=== PATIENT | male | born 1950 | race Caucasian/White ===

== ENCOUNTER 2016-05-31 07:54 | Inpatient (IN) ==
[2016-05-31] MEDS ORDERED: 0.9 % Sodium Chloride 1,000 ML ONE (08:05)
--- NOTE | 2016-05-31 08:13 | Emergency Department Note ---
Disposition Clinical Impression: New onset seizure, Confusion, TIA (transient ischemic attack) Disposition: Admitted As Inpatient Condition: Good Time of Disposition: 10:32 Seizure HPI - General Chief Complaint: ED Seizure Stated Complaint: seizure like activity Time Seen by Provider: 05/31/16 08:04 Source: EMS Limitations: no limitations Nursing Notes Reviewed: Yes Vital Signs Reviewed: Yes - History of Present Illness HPI Narrative: Patient is a 66-year-old male who presents to [facility] ED with a chief complaint of possible seizure-like activity. states that they were sitting at the dining table this morning eating breakfast when all of a sudden the patient was acting strange. asked him what was wrong and he said he was having trouble speaking. States his head went over to the side and he seemed like he had a facial droop on the right. He then had his eyes rolled back and his arms were flexed and started shaking. She then went over to call a squad and saw that he fell backwards in the chair and hit the back of his head. thinks the seizure-like episode lasted for approximately a few minutes. She came back over and laid him on his side. He then had snoring respirations afterwards. When EMS arrived approximately 10-15 minutes later, he still had snoring respirations. He was awake and alert when he presented to the emergency department. Able to answer all questions but no memory of the event. Patient does seem somewhat confused about his medications as well as medical history. states he has a medical history of hypertension on metoprolol and has been on prednisone for joint pain after an upper respiratory infection over the last 2 weeks. 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 Denies: chest pain, cough, shortness of breath, syncope, weakness Pain Scale: 0 Treatments prior to arrival: none - Related Data Home Medications Medication Instructions Recorded Confirmed Albuterol Sulfate [Albuterol 2 puff IH Q4HR PRN 03/24/16 05/31/16 Inhaler] Amlodipine Besylate 2.5 mg PO BID 03/24/16 05/31/16 Aspirin Enteric Coated [Aspirin EC] 81 mg PO DAILY 03/24/16 05/31/16 Gabapentin [Neurontin] 100 - 300 mg PO HS 03/24/16 05/31/16 Glucosamn/Condroitn/C/Mn/[place] 1 tab PO DAILY 03/24/16 05/31/16 [Cvs Glucosamine Chondroitin Tb] Levothyroxine [Synthroid] 125 mcg PO DAILY 03/24/16 05/31/16 Metoprolol XL (24 HR) Succ [Toprol 12.5 mg PO DAILY 03/24/16 05/31/16 XL] Multivitamin [One Daily Essential] 1 tab PO DAILY 03/24/16 05/31/16 [place]-3/Dha/Epa/Fish Oil [Fish Oil 1,000 mg PO DAILY 03/24/16 05/31/16 1,000 mg Softgel] PredniSONE [Deltasone] 40 mg PO DAILY 05/31/16 05/31/16 Allergies Allergy/AdvReac Type Severity Reaction Status Date / Time lisinopril AdvReac Cough Verified 03/24/16 07:12 All systems ED: reviewed and negative except as stated. Past Medical History - Past Medical History Attestation: Yes The following information was validated with the patient. Source: patient Medical history: Reports: asthma, hypertension, migraine, thyroid disease Surgical history: Reports: thyroidectomy Psychiatric history: Reports: no psych history - Social History Smoking Status: Unknown if ever smoked Smokeless Tobacco Status: No Alcohol use: Reports: occasionally Drug use: Reports: none Physical Exam - General Limitations: no limitations General appearance: alert, in no apparent distress - Head Head exam: atraumatic, normocephalic, normal inspection - Eye Eye exam: Present: normal appearance, PERRL, EOMI - ENT ENT exam: normal exam, normal oropharynx, mucous membranes moist - Neck Neck exam: Present: normal inspection, full ROM, trachea midline - Chest Chest inspection: Present: normal inspection, symmetric chest wall rise - Respiratory Respiratory exam: Present: normal lung sounds bilaterally - Cardiovascular Cardiovascular exam: Present: normal rhythm, tachycardia - Abdominal Exam Abdominal exam: Present: soft, Non-Tender. Absent: tenderness, distention, guarding, rebound, rigidity - Extremities Exam Extremities exam: Present: normal inspection, full ROM. Absent: tenderness, pedal edema - Back Exam Back exam: Present: normal inspection, full ROM. Absent: tenderness - Neurological Exam Neurological exam: Present: alert, CN II-XII intact. Absent: motor sensory deficit - Expanded Neurological Exam Speech: Present: fluid speech Motor strength - LUE: 5/5 Motor strength - RUE: 5/5 Motor strength - LLE: 5/5 Motor strength - RLE: 5/5 Coma Scale Eye Opening: Spontaneous Coma Scale Motor Response: Obeys Commands Coma Scale Verbal Response: Confused Coma Scale Total: 14 - Psychiatric Psychiatric exam: Present: normal affect, normal mood - Skin Skin exam: Present: warm, dry, intact, normal color Course Course Narrative: Patient seen and examined. Apparent seizure-like activity with possible prodromal symptoms. Had almost strokelike appearance at first with difficulty with speech as well as possible facial droop. These symptoms are gone upon his presentation. No prior seizure history. Labs, CT head ordered. Will admit patient after his workup is complete. - Reevaluation(s) Reevaluation #1: Labwork unremarkable. CT head unremarkable. I spoke with neurologist Dr. Richard who states he will consult on the patient for seizure versus TIA workup. I also spoke with hospitalist Dr. Luong was accepted patient for admission. Time: 10:23 Vital Signs Temperature 98.2 F 05/31/16 07:55 Pulse Rate 115 05/31/16 07:55 Respiratory Rate 16 05/31/16 07:55 Blood Pressure 134/90 05/31/16 07:55 O2 Sat by Pulse Oximetry 93 05/31/16 07:55 Temperature 97.8 F 05/31/16 18:49 Pulse Rate 80 05/31/16 18:49 Respiratory Rate 16 05/31/16 18:49 Blood Pressure 133/85 05/31/16 18:49 O2 Sat by Pulse Oximetry 96 05/31/16 18:49 Oxygen Delivery Oxygen Delivery Room Air Seizure - Medical Records Medical records reviewed: Yes I reviewed the patient's medical records. - Lab Data Lab results reviewed: Yes I reviewed the patient's lab results. Result diagrams: 05/31/16 08:16 05/31/16 08:16 Lab Results 05/31/16 05/31/16 05/31/16 Range/Units 08:16 08:16 08:16 WBC 11.2 H (4.3-11.1) K/mcL RBC 5.07 (4.19-5.50) M/mcL Hgb 14.6 (12.9-16.9) g/dL Hct 45.1 (37.5-50.1) % MCV 89.0 (83.0-100.0) fL MCH 28.8 (28.0-33.3) pg MCHC 32.4 (31.6-35.5) g/dL RDW 12.5 (11.5-14.5) % Plt Count 335 (140-400) K/mcL MPV 8.6 L (9.4-12.4) fL Immature Gran % 1.5 (0-4) % Seg Neutrophils % 73.4 % Lymphocytes % 16.4 % Monocytes % 8.1 % Eosinophils % 0.2 % Basophils % 0.4 % Neutrophils # 8.2 (1.6-8.9) K/mcL Lymphocytes # 1.8 (0.6-4.6) K/mcL Monocytes # 0.9 (0.0-1.3) K/mcL Eosinophils # 0.0 (0.0-0.6) K/mcL Basophils # 0.1 (0.0-0.2) K/mcL Sodium 135 L (136-145) mEq/L Potassium 4.2 (3.5-4.5) mEq/L Chloride 103 (98-109) mEq/L Carbon Dioxide 17 L (19-29) mEq/L BUN 16 (8-26) mg/dL Creatinine 0.97 (0.72-1.25) mg/dL Est GFR ( Amer) > 60 (> 60) Est GFR (Non-Af Amer) > 60 (> 60) BUN/Creatinine Ratio 16 (6-26) Glucose 133 H (70-99) mg/dL Calculated Osmolality 283 (280-300) Calcium 9.2 (8.6-10.8) mg/dL Phosphorus 2.4 (2.3-4.7) mg/dL Magnesium 2.1 (1.6-2.6) mg/dL Total Bilirubin 0.3 (0.2-1.2) mg/dL AST 12 (5-34) Units/L ALT 14 (0-55) Units/L Alkaline Phosphatase 62 (38-126) Units/L Serum Total Protein 7.0 (6.0-8.3) g/dL Albumin 3.4 L (3.5-5.0) g/dL Globulin 3.6 H (2.4-3.5) g/dL Albumin/Globulin Ratio 0.9 L (1.1-2.2) TSH 10.621 H (0.350-4.840) mcIU/mL - Radiology Data Radiology results reviewed: Yes I reviewed the patient's radiology results. Head CT 05/31/16 08:06 IMPRESSION: No acute intracranial abnormality. D/ / Percy Skaggs MD / Percy Skaggs MD Interpreting Provider: Percy Skaggs MD - EKG Data EKG attestation: Yes I reviewed and interpreted this EKG. EKG results narrative: EKG done at 759 shows sinus tachycardia with a rate of [address] elevation or depression. Normal axis. Unchanged from prior EKG done 2016.
--- NOTE | 2016-05-31 08:19 | Emergency Department Note ---
START Narrative - START START: I examined this patient and my medical decision-making was reviewed with the SITE OPERATIONS MANAGER/PA/Advanced Practice Nurse/Resident Physician. I agree with the documented findings, disposition and treatment plan as described except to the extent set forth below. 66-year-old male brought in by EMS after syncopal versus seizure episode. states that they were sitting at table eating breakfast when he suddenly had drooping of the right side of the face and had difficulty with speech. Patient then unresponsive and had convulsive movements. described as "seizure-like ". No history of seizure disorder. Patient has not syncopized before. No history of cardiac disease. Patient is treated for hypertension, hypothyroidism. He states the seizure lasted for about 3-5 minutes before improving. EMS states the patient was confused and had snoring respirations upon their arrival and upon arrival to the emergency department the patient is awake, alert, answering questions but has mild confusions regarding his case and presentation as well as his past medical history. We will obtain a CT of the head to rule out mass or intracranial hemorrhage as well as broad screening exam to evaluate for electrolyte abnormalities, cardiac disease. Patient will likely be admitted to the hospital for continuation of care.
[2016-05-31 08:23] LABS: Basophils # 0.1 K/mcL (0.0-0.2); Basophils % 0.4 %; Eosinophils % 0.2 %; Hematocrit 45.1 % (37.5-50.1); Hemoglobin 14.6 g/dL (12.9-16.9); Immature Granulocytes % 1.5 % (0-4); Lymphocytes # 1.8 K/mcL (0.6-4.6); Lymphocytes % 16.4 %; Mean Corpuscular HGB Conc 32.4 g/dL (31.6-35.5); Mean Corpuscular Hemoglobin 28.8 pg (28.0-33.3); Mean Platelet Volume 8.6 fL (9.4-12.4); Monocytes # 0.9 K/mcL (0.0-1.3); Monocytes % 8.1 %; Neutrophils # 8.2 K/mcL (1.6-8.9); Platelet Count 335 K/mcL (140-400); Red Blood Count 5.07 M/mcL (4.19-5.50); Red Cell Distribution Width 12.5 % (11.5-14.5); Segmented Neutrophils % 73.4 %
[2016-05-31 08:39] LABS: Alanine Aminotransferase 14 Units/L (0-55); Albumin 3.4 g/dL (3.5-5.0); Albumin/Globulin Ratio 0.9 (1.1-2.2); Alkaline Phosphatase 62 Units/L (38-126); Aspartate Amino Transferase 12 Units/L (5-34); BUN/Creatinine Ratio 16 (6-26); Bilirubin,Total 0.3 mg/dL (0.2-1.2); Blood Urea Nitrogen 16 mg/dL (8-26); Calcium 9.2 mg/dL (8.6-10.8); Carbon Dioxide 17 mEq/L (19-29); Chloride 103 mEq/L (98-109); Globulin 3.6 g/dL (2.4-3.5); Glucose 133 mg/dL (70-99); Magnesium 2.1 mg/dL (1.6-2.6); Osmolality,Calculated 283 (280-300); Phosphorous 2.4 mg/dL (2.3-4.7); Potassium 4.2 mEq/L (3.5-4.5); Sodium 135 mEq/L (136-145); eGFR For African Americans > 60 (> 60); eGFR For Non-African Americans > 60 (> 60)
[2016-05-31] MEDS ORDERED: Acetaminophen 325 MG TABLET PO ONE (09:37)
[2016-05-31] MEDS ORDERED: Ondansetron 4 MG/2 ML VIAL IVP PRN (10:11)
[2016-05-31] MEDS ORDERED: Acetaminophen 325 MG TABLET PO PRN (10:11)
[2016-05-31] MEDS ORDERED: Naloxone 0.4 MG/ML INJ IVP PRN (10:11)
[2016-05-31] MEDS ORDERED: MOM Conc 10 ML UD.LIQ PO PRN (10:11)
[2016-05-31] MEDS ORDERED: Mag Hydrox/Al Hydrox/Simeth 30 ML UDC PO PRN (10:11)
[2016-05-31] MEDS ORDERED: *HR* LORazepam 2 MG/ML VIAL IVP PRN (11:27)
[2016-05-31] MEDS: predniSONE 20 MG TABLET PO SCH (11:35)
[2016-05-31] MEDS: amLODIPine 5 MG TABLET PO SCH ×2 (11:35→21:00)
[2016-05-31] MEDS: Metoprolol XL (24 HR) Succ 25 MG TAB.ER.24H PO SCH (11:56)
--- NOTE | 2016-05-31 12:19 | Internal Med History&Physical ---
Date of Encounter: 05/31/16 Time of Encounter: 11:10 Assessment and Plan (1) Grand mal seizure Current visit: Yes Status: Acute Pt has no prior history of seizures. Denies precipitating event. Recently on steroids for myalgia/arthralgias Consult neuro: done in ED EEG ordered. Seizure precautions. PRN Ativan. ? if component of structural disease - MRI/MRA ordered. Denies alcohol use - Urine drug screen pending. (2) TIA (transient ischemic attack) Current visit: Yes Status: Suspected Asymptomatic at this time. Neuro consulted. MRI/MRA ordered Echo ordered On ASA Qualifiers: Transient cerebral ischemia type: unspecified Qualified Code(s): G45.9 - Transient cerebral ischemic attack, unspecified (3) Hypertension Current visit: Yes Status: Acute Pt with markedly elevated blood pressure at this time. Meds given in ED and PRN ordered. Complains of flushing as well - may need further work up for secondary causes if BP does not control. Qualifiers: Hypertension type: essential hypertension Qualified Code(s): I10 - Essential (primary) hypertension (4) Hepatomegaly Current visit: Yes Status: Suspected Consider further evaluation with ultrasound if warranted. LFTs normal at this time. (5) Hypothyroidism associated with surgical procedure Current visit: Yes Status: Acute Hx of goiter s/p unilateral thyroidectomy. Continue supplementation. Check TSH if not done (especially with hx of flushing). Internal Medicine - H&P: HPI Chief complaint: Witnessed seizure Admitted From: Emergency Dept Plans for Post Hospital Care: Home History of present illness: Mr. Solomon is a 66 year old male with hx of HTN brought to ED by EMS after witnessed seizure episode. 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 stated they were sitting at table when she noticed he seemed to be staring and unable to answer her. Subsequently she did notice a slight R facial weakness and then he became unresponsive with tonic clonic movements. She managed his airway and called 911. Upon squad arrival he was unresponsive with snoring respirations. He began to awaken in the squad but could only remember his name and was somnolent. Now he is fully awake but does not remember event. He also appears to have some retrograde amnesia of the time prior to the event. His only complaint is discomfort on the back of his head where it was hit. He denies prior history of seizure disorder. He has Neurontin at home but only took a couple doses a while ago and it was prescribed for restless leg syndrome. Denies any prior neurologic disease. No recent travel. His only recent history is a viral illness about 4 weeks ago which resolved in about 2 weeks. Over the last week he did develop some myalgias and arthralgias and was prescribed 5 days of Prednisone (today is day 4). Of note his relates an issue with his blood pressure - "white coat syndrome." His BPs are usually OK at home but he said recently they have been high. He also stated he has felt some warmth and flushing in his face recently. No fever or chills. No diarrhea or vomiting. No abdominal pain. Past Med Surg Social Fam HX - Past Medical History Attestation: Yes The following information was validated with the patient. Source: patient, obtained from family Medical history: arthritis, asthma, hypertension, migraine, thyroid disease Psychiatric history: no psych history - Past Surgical History Surgical History: thyroidectomy, other (L carpel tunnel 03/2016) - Social History Smoking Status: Never smoker Smokeless Tobacco Status: No Alcohol use: occasionally Drug use: none Current living situation: Home - Independent Activity Level: Independent ambulation Recent Out of Country Travel Within the Last 8 Weeks: No - Family History Father Living Status: Hx Family Cardiac Disorders: Yes (HTN, CAD) Hx Family Cancer: Yes (Lung) Mother Adopted: No Hx Family Cardiac Disorders: Yes (HTN) Brother Hx Family Cancer: Yes (Prostate) Internal Medicine - H&P: Meds Albuterol Sulfate [Albuterol Inhaler] 2 puff IH Q4HR PRN 03/24/16 [History] Amlodipine Besylate 2.5 mg PO BID 03/24/16 [History] Aspirin Enteric Coated [Aspirin EC] 81 mg PO DAILY 03/24/16 [History] Gabapentin [Neurontin] 100 - 300 mg PO HS 03/24/16 [History] Glucosamn/Condroitn/C/Mn/[place] [[facility]vs Glucosamine Chondroitin Tb] 1 tab PO DAILY 03/24/16 [History] Levothyroxine [Synthroid] 125 mcg PO DAILY 03/24/16 [History] Metoprolol XL (24 HR) Succ [Toprol XL] 12.5 mg PO DAILY 03/24/16 [History] Multivitamin [One Daily Essential] 1 tab PO DAILY 03/24/16 [History] [place]-3/Dha/Epa/Fish Oil [Fish Oil 1,000 mg Softgel] 1,000 mg PO DAILY 03/24/16 [History] PredniSONE [Deltasone] 40 mg PO DAILY 05/31/16 [History] Allergies lisinopril Adverse Reaction (Verified 03/24/16 07:12) Cough All Systems PM: A 10-system review of systems was performed and is negative for pertinent findings except as documented above in the HPI. - Constitutional Constitutional: malaise, no night sweats - EENT Eyes: no blurry vision, no change in vision, no pain Ears: no decreased hearing Nose, mouth and throat: no change in voice, no dysphagia, no hoarseness - Cardiovascular Cardiovascular ROS IM: no chest pain, no dyspnea, no irregular heart rhythm, no palpitations - Respiratory Respiratory: no cough, no dyspnea, no hemoptysis, no dyspnea on exertion - Gastrointestinal Gastrointestinal: no abdominal pain, no diarrhea, no hematemesis - Genitourinary Genitourinary ROS male: no dysuria, no flank pain - Musculoskeletal Musculoskeletal ROS IM: arthralgias, myalgias - Integumentary Integumentary IM: no erythema, no rash - Neurological Neurological ROS: confusion, convulsions, memory loss, numbness, restless legs, tingling, no dizziness - Psychiatric Psychiatric: no confusion, no depression - Endocrine Endocrine IM: flushing - Hematologic/Lymphatic Hematologic/Lymphatic: no lymphadenopathy - Allergic/Immunologic Allergic/Immunologic: no wheezing, no lip swelling - Constitutional Vitals: Temp Pulse Resp BP Pulse Ox 97.4 F L 80 18 169/112 98 05/31/16 11:01 05/31/16 11:01 05/31/16 11:01 05/31/16 11:01 05/31/16 11:01 General appearance: Present: A&O X 3, pleasant, answers questions appropriately - Head Head exam: Present: normocephalic Additional comments: No hematoma - Eye Eye exam: Present: EOMI, PERRL, conjuntiva pink. Absent: scleral icterus - ENT ENT exam: Present: mucous membranes dry - Neck Neck exam general surgery: Absent: lymphadenopathy, thyromegaly - Respiratory Respiratory exam: Present: CTAB. Absent: rhonchi, wheezes - Cardiovascular Cardiovascular exam: Present: RRR. Absent: +S3, +S4, systolic murmur, tachycardia - GI/Abdominal GI/Abdominal exam: Present: normal bowel sounds, soft. Absent: tenderness (? if there is hepatomegaly) - Extremities Exam Extremities exam: Present: full ROM, warm. Absent: pedal edema, tenderness - Neurological Exam Neurological exam: Present: alert, CN II-XII intact (? if slightly weaker on LUE ), oriented X3 - Psychiatric Psychiatric exam: Present: normal affect, normal mood - Skin Skin exam: Present: erythema (Cheeks flushed), warm. Absent: rash Internal Med - H&P Results - Labs CBC & Chem 7: 05/31/16 08:16 05/31/16 08:16
--- NOTE | 2016-05-31 12:57 | Neurology - Consult Note ---
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 Will need seizure work up including MRI of brain and Routine EEG. Due to age and comorbidities, will recommend starting him on antiepileptic therapy in the form of Keppra 500mg bid. History of Present Illness Chief complaint: seizure HPI: Mr. Solomon is a 66 year old male with PMH significant for HTN, hypothyroidism, who presented to ER with new onset of seizure activity. Patient interviewed in the presence of his . Patient was feeling this morning. Was eating and suddenly became looking bewildered and asked him the he did not respond. This was followed by him having automatism activity described as touch his both hand in the front and then turned his head to the right side and then started shaking and convulsions. Denies any warnings and no tongue biting kalyani but felt tongue was sore in the middle. No urinary incontinence. Has strong family history of epilepsy. Patient also has history of febrile convulsions. No similar spell in the past. Past Med Surg Social Fam HX - Past Medical History Medical history: arthritis, asthma, hypertension, migraine, thyroid disease Psychiatric history: no psych history - Past Surgical History Surgical History: thyroidectomy, other (L carpel tunnel 03/2016) - Social History Smoking Status: Never smoker Smokeless Tobacco Status: No Alcohol use: occasionally Drug use: none - Family History Father Living Status: Hx Family Cardiac Disorders: Yes (HTN, CAD) Hx Family Cancer: Yes (Lung) Mother Adopted: No Hx Family Cardiac Disorders: Yes (HTN) Brother Hx Family Cancer: Yes (Prostate) Medications and Allergies Albuterol Sulfate [Albuterol Inhaler] 2 puff IH Q4HR PRN 03/24/16 [History] Amlodipine Besylate 2.5 mg PO BID 03/24/16 [History] Aspirin Enteric Coated [Aspirin EC] 81 mg PO DAILY 03/24/16 [History] Gabapentin [Neurontin] 100 - 300 mg PO HS 03/24/16 [History] Glucosamn/Condroitn/C/Mn/[place] [Cvs Glucosamine Chondroitin Tb] 1 tab PO DAILY 03/24/16 [History] Levothyroxine [Synthroid] 125 mcg PO DAILY 03/24/16 [History] Metoprolol XL (24 HR) Succ [Toprol XL] 12.5 mg PO DAILY 03/24/16 [History] Multivitamin [One Daily Essential] 1 tab PO DAILY 03/24/16 [History] [place]-3/Dha/Epa/Fish Oil [Fish Oil 1,000 mg Softgel] 1,000 mg PO DAILY 03/24/16 [History] PredniSONE [Deltasone] 40 mg PO DAILY 05/31/16 [History] Allergies lisinopril Adverse Reaction (Verified 03/24/16 07:12) Cough All Systems: A 10-system review of systems was performed and is negative for pertinent findings except as documented above in the HPI. Physical Examination - Vital Signs Vital Signs: Initial Vital Signs Temp Pulse Resp BP Pulse Ox 98.2 F 115 16 134/90 93 05/31/16 07:55 05/31/16 07:55 05/31/16 07:55 05/31/16 07:55 05/31/16 07:55 - Constitutional General appearance: comfortable - Neurologic Sensorimotor examination: intact Detailed motor examination: grossly full strength in all extremities Motor examination - right side: 5/5: deltoids, biceps, triceps, wrist flexion, wrist extension, apartment maintenance, hip flexors, tibialis Anterior, quadriceps, toe extension (EHL), plantarflexion Motor examination - left side: 5/5: deltoids, biceps, triceps, wrist flexion, wrist extension, hip flexors, apartment maintenance, quadriceps, tibialis Anterior, toe extension (EHL), plantarflexion Detailed sensory examination: intact Posture: other (None) Reflex and gait examination: other Reflexes: Biceps: 2+, Triceps: 2+, Brachioradialis: 2+, Patella: 2+, Achilles: 2 + Mental Status Examination: awake, alert, oriented to person, oriented to place, oriented to time, follows commands appropriately, answers questions appropriately, no agnosia, no aphasia, no aproxia Cranial nerve examination: PERRL, EOMI, visual dean intact, corneal reflexes brisk symmetrically, sensory to face intact, mastication intact, no facial asymmetry is present, no dysarthria, hearing is intact symmetrically, soft palate elevates bilaterally upon phonation, gag reflex intact, flexes SCM and trapezius muscles symmetrically with full power, tongue protrudes midline, no atrophy or facial fasiculations present Results - Laboratory Findings CBC and BMP: 05/31/16 08:16 05/31/16 08:16 Abnormal lab findings: Abnormal lab results WBC 11.2 K/mcL (4.3-11.1) H 05/31/16 08:16 MPV 8.6 fL (9.4-12.4) L 05/31/16 08:16 Sodium 135 mEq/L (136-145) L 05/31/16 08:16 Carbon Dioxide 17 mEq/L (19-29) L 05/31/16 08:16 Glucose 133 mg/dL (70-99) H 05/31/16 08:16 Albumin 3.4 g/dL (3.5-5.0) L 05/31/16 08:16 Globulin 3.6 g/dL (2.4-3.5) H 05/31/16 08:16 Albumin/Globulin Ratio 0.9 (1.1-2.2) L 05/31/16 08:16 Consult Discharge Plan - Plan Referrals: Alannah Collins, [facility]OR[facility] [Primary Care Provider] -
[2016-05-31] MEDS: *HR* Heparin 5,000 UNIT/ML VIAL SQ SCH ×2 (13:20→21:04)
[2016-05-31 14:21] LABS: Bilirubin,Urine Negative (Negative); Blood,Urine Negative (Negative); Clarity,Urine Clear (Clear); Color,Urine Yellow (Yellow); Glucose,Urine (UA) Normal (Normal); Ketones,Urine Negative (Negative); Leukocyte Esterase,Urine Negative (Negative); Nitrite,Urine Negative (Negative); Protein,Urine Negative (Neg-Trace); Specific Gravity,Urine 1.015 (1.010-1.025); Urobilinogen,Urine Normal (Normal)
[2016-05-31 15:32] LABS: Amphetamine Screen,Urine Negative ng/mL (Cutoff=1000); Barbiturate Screen,Urine Negative ng/mL (Cutoff=200); Benzodiazepines Screen,Urine Negative ng/mL (Cutoff=200); Cannabinoid Screen,Urine Negative ng/mL (Cutoff = 50); Cocaine Screen,Urine Negative ng/mL (Cutoff= 300); Opiate Screen,Urine Negative ng/mL (Cutoff=300); Phencyclidine Screen,Urine Negative ng/mL (Cutoff=25)
[2016-05-31] MEDS ORDERED: Melatonin 3 MG TABLET PO SCH (21:30)
[2016-06-01 04:52] LABS: Basophils # 0.1 K/mcL (0.0-0.2); Basophils % 0.5 %; Eosinophils # 0.1 K/mcL (0.0-0.6); Eosinophils % 0.7 %; Hematocrit 41.2 % (37.5-50.1); Hemoglobin 13.7 g/dL (12.9-16.9); Lymphocytes # 2.5 K/mcL (0.6-4.6); Lymphocytes % 19.3 %; Mean Corpuscular HGB Conc 33.3 g/dL (31.6-35.5); Mean Corpuscular Hemoglobin 28.8 pg (28.0-33.3); Mean Corpuscular Volume 86.7 fL (83.0-100.0); Mean Platelet Volume 8.6 fL (9.4-12.4); Monocytes # 1.2 K/mcL (0.0-1.3); Monocytes % 9.1 %; Neutrophils # 8.8 K/mcL (1.6-8.9); Platelet Count 323 K/mcL (140-400); Red Blood Count 4.75 M/mcL (4.19-5.50); Red Cell Distribution Width 12.5 % (11.5-14.5); Segmented Neutrophils % 69.4 %
[2016-06-01 05:36] LABS: Alanine Aminotransferase 16 Units/L (0-55); Albumin 3.3 g/dL (3.5-5.0); Alkaline Phosphatase 57 Units/L (38-126); Aspartate Amino Transferase 17 Units/L (5-34); BUN/Creatinine Ratio 19 (6-26); Bilirubin,Total 0.3 mg/dL (0.2-1.2); Blood Urea Nitrogen 16 mg/dL (8-26); Calcium 8.7 mg/dL (8.6-10.8); Carbon Dioxide 24 mEq/L (19-29); Chloride 100 mEq/L (98-109); Globulin 3.2 g/dL (2.4-3.5); Glucose 101 mg/dL (70-99); Osmolality,Calculated 277 (280-300); Potassium 3.3 mEq/L (3.5-4.5); Sodium 133 mEq/L (136-145); Total Protein 6.5 g/dL (6.0-8.3); eGFR For African Americans > 60 (> 60); eGFR For Non-African Americans > 60 (> 60)
[2016-06-01] MEDS: *HR* Heparin 5,000 UNIT/ML VIAL SQ SCH (06:13)
--- NOTE | 2016-06-01 06:22 | Electrocardiograph Report ---
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
[2016-06-01] MEDS ORDERED: Aspirin Enteric Coated 81 MG Tablet PO SCH (09:00)
--- NOTE | 2016-06-01 09:08 | Neurology Progress Note ---
Date of Encounter: 06/01/16 Time of Encounter: 09:06 Assessment and Plan (1) New onset seizure Current Visit: Yes Status: Acute Will increase dose of Keppra to 750 mg BID PO as he had two episodes recently, last one being yesterday afternoon No events overnight and patient is currently at baseline mental status Awaiting EEG and MRI; initial head CT was negative for acute intracranial abnormalities Patient likely will benefit from better control of co-morbidities including hypothyroidism and hypertension Subjective Principal diagnosis: seizure Interval history: Pt seen and examined. He states he is doing well this morning and is at bedside and reports no seizure like activity since yesterday afternoon, and his mental status is appropriate and at baseline. He denies any chest pain, shortness of breath, nausea, vomiting, dysphagia, headaches. He claims to have issues with ambulating, denying any dizziness or falls, and is eager to go home. Objective - Constitutional Vitals: Temp Pulse Resp BP Pulse Ox 97.9 F 57 17 119/90 94 06/01/16 07:19 06/01/16 07:19 06/01/16 07:19 06/01/16 07:19 06/01/16 07:19 General appearance: Present: cooperative, A&O X 3, pleasant, no acute distress, answers questions appropriately - Head Head exam: Present: atraumatic, normocephalic - Eye Eye exam: Present: PERRL, conjuntiva pink, sclera anicteric - Extremities Exam Extremities exam: Present: warm, radial pulses palpable and symetrical. 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 vendor, hip flexors, quadriceps Motor examination - left side: 5/5: deltoids, biceps, triceps, hip flexors, market stall vendor , quadriceps Sensation intact: Present: intact Posture: Present: other (None) Mental Status Examination: Present: awake, alert, oriented to person, oriented to place, oriented to time, follows commands appropriately, answers questions appropriately, no agnosia, no aphasia, no aproxia Cranial nerve examination: Present: PERRL, EOMI, visual dean intact, corneal reflexes brisk symmetrically, sensory to face intact, mastication intact, no facial asymmetry is present, no dysarthria, hearing is intact symmetrically, soft palate elevates bilaterally upon phonation, gag reflex intact, flexes SCM and trapezius muscles symmetrically with full power, tongue protrudes midline, no atrophy or facial fasiculations present Results - Laboratory Findings CBC and BMP: 06/01/16 04:40 06/01/16 04:40 Abnormal lab findings: Abnormal lab results WBC 12.7 K/mcL (4.3-11.1) H 06/01/16 04:40 MPV 8.6 fL (9.4-12.4) L 06/01/16 04:40 Sodium 133 mEq/L (136-145) L 06/01/16 04:40 Potassium 3.3 mEq/L (3.5-4.5) L 06/01/16 04:40 Glucose 101 mg/dL (70-99) H 06/01/16 04:40 POC Glucose 105 (58-89) H 05/31/16 14:43 Calculated Osmolality 277 (280-300) L 06/01/16 04:40 Albumin 3.3 g/dL (3.5-5.0) L 06/01/16 04:40 Albumin/Globulin Ratio 1.0 (1.1-2.2) L 06/01/16 04:40 TSH 10.621 mcIU/mL (0.350-4.840) H 05/31/16 08:16 Consult Discharge Plan - Plan Referrals: Alannah Collins [employer] WORKER [Primary Care Provider] -
--- NOTE | 2016-06-01 10:25 | EEG/EMG/Oth Biometrics Report ---
EEG Procedure Report Date of procedure: 06/01/16 EEG Procedure: Routine EEG Procedure Note: This EEG was acquired with standard international 1020 system with EKG recording. The background EEG activity was characterized by the presence of posterior dominant alpha rhythm with the best frequency up to 11 Hz. The background activity was reactive to eye openings. Sleep stages were not identified during this tracing. Drowsiness was characterized by drop off of posterior dominant Alpha rhythm. There are no electrographic seizures identified during this tracing. There are no epileptiform discharges and focal slowing noted during this recording. Photic stimulation produced and produced no abnormalities. Hyperventilation procedure not performed EKG tracing showed no significant cardiac dysrhythmia. Impression: This is essentially a normal awake and drowsy EEG. Clinical Correlation: Normal EEGs, however, do not exclude epilepsy. Clinical correlation is advised.
--- NOTE | 2016-06-01 12:35 | Neurology Progress Note ---
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 Nonfocal neurological examination. EEG normal. Waiting for MRI of brain to be completed. New onset seizures in this age group tend to be partial in etiology. Definitely needs MRI of brain to rule out structural lesions. Continue Keppra 750mg bid. If MRI of brain returns normal, patient can be discharged home and follow up in neuro in 2 -3 weeks. Seizure precaution advised. Patient advised not to drive at least 3 months free of seizure Subjective Principal diagnosis: seizure Interval history: Patient seen and examined. She had another witnessed seizure yesterday before the first dose of keppra. He has no recollection of the seizure. He feels fine now. EEG was read as normal. Is waiting for MRI of brain Objective - Constitutional Vitals: Temp Pulse Resp BP Pulse Ox 97.9 F 75 17 146/97 95 06/01/16 11:36 06/01/16 11:36 06/01/16 11:36 06/01/16 11:36 06/01/16 11:36 General appearance: Present: cooperative, A&O X 3, pleasant, no acute distress, answers questions appropriately - Neurological Exam Sensorimotor examination: Present: intact Motor Examination: Present: grossly full strength in all extremities Motor examination - left side: 5/5: deltoids, biceps, triceps, wrist flexion, wrist extension, hip flexors, caving guide, quadriceps, tibialis Anterior, toe extension (EHL), plantarflexion Sensation intact: Present: intact Posture: Present: other (None) Reflex and gait examination: other Mental Status Examination: Present: awake, alert, oriented to person, oriented to place, oriented to time, follows commands appropriately, answers questions appropriately, no agnosia, no aphasia, no aproxia Cranial nerve examination: Present: PERRL, EOMI, visual dean intact, corneal reflexes brisk symmetrically, sensory to face intact, mastication intact, no facial asymmetry is present, no dysarthria, hearing is intact symmetrically, soft palate elevates bilaterally upon phonation, gag reflex intact, flexes SCM and trapezius muscles symmetrically with full power, tongue protrudes midline, no atrophy or facial fasiculations present Results - Laboratory Findings CBC and BMP: 06/01/16 04:40 06/01/16 04:40 Abnormal lab findings: Abnormal lab results WBC 12.7 K/mcL (4.3-11.1) H 06/01/16 04:40 MPV 8.6 fL (9.4-12.4) L 06/01/16 04:40 Sodium 133 mEq/L (136-145) L 06/01/16 04:40 Potassium 3.3 mEq/L (3.5-4.5) L 06/01/16 04:40 Glucose 101 mg/dL (70-99) H 06/01/16 04:40 POC Glucose 105 (58-89) H 05/31/16 14:43 Calculated Osmolality 277 (280-300) L 06/01/16 04:40 Albumin 3.3 g/dL (3.5-5.0) L 06/01/16 04:40 Albumin/Globulin Ratio 1.0 (1.1-2.2) L 06/01/16 04:40 TSH 10.621 mcIU/mL (0.350-4.840) H 05/31/16 08:16 Consult Discharge Plan - Plan Referrals: Alannah Collins, PLAYGROUND WORKER [Primary Care Provider] -
[2016-06-01] MEDS: amLODIPine 5 MG TABLET PO SCH (14:22)
[2016-06-01] MEDS: Metoprolol XL (24 HR) Succ 25 MG TAB.ER.24H PO SCH (14:22)
[2016-06-01] MEDS: predniSONE 20 MG TABLET PO SCH (14:22)
[2016-06-01 15:32] VITALS: BP 145/87
--- NOTE | 2016-06-01 15:32 | Discharge Summary ---
Date of Encounter: 06/01/16 Time of Encounter: 15:10 - Discharge Diagnosis (1) Grand mal seizure Priority: Secondary Status: Acute Comments: Patient had 2 witnessed seizures. Witnessed by at home. Patient states they were sitting at the table at home and patient seemed confused and stuporous. She said that she noted right facial droop, he turned his head to the right, and began jerking with tonic-clonic movements. Afterwards she was noted to have snoring respirations and was slow to respond and appeared to have a post ictal.. He had another episode in the emergency department, he does not remember any of the events. Patient denies history of seizures, no family history of seizures. Started on Keppra 500 mg by mouth twice a day. His MRI, head CT, EEG, and head MRA are all unremarkable and negative. Patient is alert and oriented with no deficits. He is going to be discharged home with a prescription for Keppra 750 mg by mouth twice a day and will follow up with neurology. He does have an appointment with his primary care physician in 3 days. (2) TIA (transient ischemic attack) Priority: Secondary Status: Suspected Comments: Patient was reported by to have right-sided facial droop, was unable to respond to her when she was speaking and seemed confused, all of this immediately preceded seizure activity. His MRI and MRA of both negative for intracranial abnormalities ischemia or bleeds. He has no deficits. His speech is clear, gait is steady, he does not have a headache, he has no weakness, strength are equal upper and lower bilaterally. He will follow-up with neurology. Qualifiers: Transient cerebral ischemia type: unspecified Qualified Code(s): G45.9 - Transient cerebral ischemic attack, unspecified (3) Hypertension Priority: Secondary Status: Acute Comments: This is chronic. He has been at goal during admission. Continue home medications. Qualifiers: Hypertension type: essential hypertension Qualified Code(s): I10 - Essential (primary) hypertension (4) Hepatomegaly Priority: Secondary Status: Suspected Comments: Liver enzymes are within normal limits. Patient did have a liver ultrasound today. There is no evidence of cholelithiasis or biliary obstruction there is sludge in the gallbladder. He has hepatic steatosis. The abnormal appearance of the right kidney and visualized portion of the pancreas. Patient is aware of these results. He has a follow-up visit with his primary care physician in 2 days. He will discuss all of the results with her at that time. - Discharge Medications Prescriptions: LevETIRAcetam [Keppra] 750 mg PO Q12HR #60 tablet Zolpidem [Ambien] 5 mg PO HS PRN #2 tablet PRN Reason: Insomnia Home Medications: Albuterol Sulfate [Albuterol Inhaler] 2 puff IH Q4HR PRN 03/24/16 [History] Amlodipine Besylate 2.5 mg PO BID 03/24/16 [History] Aspirin Enteric Coated [Aspirin EC] 81 mg PO DAILY 03/24/16 [History] Gabapentin [Neurontin] 100 - 300 mg PO HS 03/24/16 [History] Glucosamn/[place]n/C/Mn/[place]rett [Cvs Glucosamine Chondroitin Tb] 1 tab PO DAILY 03/24/16 [History] Levothyroxine [Synthroid] 125 mcg PO DAILY 03/24/16 [History] Metoprolol XL (24 HR) Succ [Toprol Xl] 12.5 mg PO DAILY 03/24/16 [History] Multivitamin [One Daily Essential] 1 tab PO DAILY 03/24/16 [History] [place]lett-3/Dha/Epa/Fish Oil [Fish Oil 1,000 mg Softgel] 1,000 mg PO DAILY 03/24/16 [History] LevETIRAcetam [Keppra] 750 mg PO Q12HR #60 tablet 06/01/16 [Rx] Zolpidem [Ambien] 5 mg PO HS PRN #2 tablet 06/01/16 [Rx] Allergies/Adverse Reactions: Allergies lisinopril Adverse Reaction (Verified 03/24/16 07:12) Cough Date of admission: 06/01/16 12:20 Primary care physician: Alannah Collins CNP Discharging clinician: Danita Ellis Anticipated date of discharge: 06/01/16 - Patient Status Disposition: Home, Self-Care Functional capacity at discharge: independent ambulation Overall status at discharge: patient is back to baseline - Discharge Instructions Follow Up With: Alannah Collins CNP [Primary Care Provider] - Additional Instructions: Please start your new medication at home tonight. Resume the rest of your medications, other than the Prednisone. Follow up with neurology in 1-2 weeks for a recheck and a refill on your medications. Return to the ED for any problems or concerns, or if your condition changes or worsens. Do not drive until you are released to do so by neurology. - Diet and Activity Activity: increase activity as tolerated, other Diet: advance to your usual diet Hospital course: Mr. Solomon is a 66 year old male who presented to the ED after a seizure at home. states that he appeared to be confused and unable to answer her, he turned his head to the R side and began having what were described as tonic- clonic movements. He had snoring respirations after and was post-ictal. He had another seizure in the ED. All of his imaging was negative, including theEEG. Pt denies BASS or vision changes. He denies any weakness or difficulty with walking or speech. He is alert and awake. Both Dr. Richard and I have discussed with him that he should not drive. He is aware, and although he is upset by it, he did verbalize that he will not be able to not drive. verbalizes understanding. Patient was also admitted with hepatomegaly. His abdomen is nontender bowel sounds 4 and was not able to palpate an enlarged liver. He does not have gallstones or cholecystitis, there is no biliary obstruction, there is sludge in the gallbladder. He does have hepatic steatosis, and there is normal appearance of the right kidney in the visualized portion of the pancreas. Liver enzymes are within normal limits. His cholesterol is slightly elevated. He is going to follow-up with his family doctor on in 2 days. Patient is stable for discharge. - Time Spent with Patient Total time spent providing and/or coordinating discharge services: Less than 30 minutes - Constitutional Vitals: Temp Pulse Resp BP Pulse Ox 97.9 F 75 17 146/97 95 06/01/16 11:36 06/01/16 11:36 06/01/16 11:36 06/01/16 11:36 06/01/16 11:36 General appearance: Present: A&O X 3, pleasant, answers questions appropriately
[2016-06-01] MEDS ORDERED: levETIRAcetam 250 MG TABLET PO SCH (18:00)
== END 2016-06-01 16:45 | disposition home or self-care (01) | DRG 101 ==
LOC: EMEROO 07:54 → 3BNU 07:54
PROVIDERS: ADMIT Internal Medicine; ATTEND Registered Nurse

== ENCOUNTER 2021-07-28 07:46 | Observation (INO) ==
[2021-07-28] MEDS ORDERED: *HR* Labetalol 20 MG/4 ML SYRINGE IVP ONE (08:08)
[2021-07-28 08:51] LABS: Basophils # 0.1 K/mcL (0.0-0.2); Basophils % 1.3 %; Eosinophils # 0.5 K/mcL (0.0-0.6); Eosinophils % 7.3 %; Hematocrit 45.9 % (37.5-50.1); Hemoglobin 15.1 g/dL (12.9-16.9); Immature Granulocytes % 0.6 % (0-4); Lymphocytes # 1.5 K/mcL (0.6-4.6); Lymphocytes % 21.8 %; Mean Corpuscular HGB Conc 32.9 g/dL (31.6-35.5); Mean Corpuscular Hemoglobin 30.7 pg (28.0-33.3); Mean Corpuscular Volume 93.3 fL (83.0-100.0); Mean Platelet Volume 9.4 fL (9.4-12.4); Monocytes % 15.2 %; Neutrophils # 3.6 K/mcL (1.6-8.9); Platelet Count 196 K/mcL (140-400); Red Blood Count 4.92 M/mcL (4.19-5.50); Red Cell Distribution Width 13.8 % (11.5-14.5); Segmented Neutrophils % 53.8 %; White Blood Count 6.7 K/mcL (4.3-11.1)
[2021-07-28 09:11] LABS: BUN/Creatinine Ratio 16 (6-26); Blood Urea Nitrogen 17 mg/dL (8-23); Calcium 9.5 mg/dL (8.6-10.3); Carbon Dioxide 27 mEq/L (23-29); Chloride 101 mEq/L (98-107); Glucose 99 mg/dL (70-105); Osmolality,Calculated 282 (280-300); Sodium 135 mEq/L (136-145); Troponin I < 0.03 ng/mL (< 0.04); eGFR For African Americans > 60 (> 60); eGFR For Non-African Americans > 60 (> 60)
[2021-07-28] MEDS ORDERED: Naloxone 0.4 MG/ML INJ IVP PRN (10:20)
[2021-07-28] MEDS ORDERED: *HR* Amiodarone 200 MG TABLET PO SCH ×2 (10:30→21:00)
[2021-07-28 10:56] LABS: Chol/HDL Ratio 2.7 (0-4.9); Cholesterol 133 mg/dL (< 200); HDL Cholesterol 50 mg/dL (40-59); LDL Cholesterol,Calculated 62 mg/dL (< 100); Triglycerides 107 mg/dL (< 150)
[2021-07-28 11:29] LABS: Estimated Average Glucose 105 mg/dl; Hemoglobin A1C 5.3 %
[2021-07-28] MEDS ORDERED: hydroCHLOROthiazide 25 MG TABLET PO SCH (13:30)
[2021-07-28 14:15] LABS: Thyroid Stimulating Hormone 10.605 mcIU/mL (0.340-5.600)
[2021-07-28] MEDS: *HR* Heparin 5,000 UNIT/ML VIAL SQ SCH (16:31)
[2021-07-28] MEDS ORDERED: traZODone 50 MG TABLET PO ONE (21:00)
[2021-07-29] MEDS: *HR* Heparin 5,000 UNIT/ML VIAL SQ SCH (05:36)
[2021-07-29 06:28] VITALS: O2SAT 96
[2021-07-29] MEDS ORDERED: Aspirin 81 MG TAB.CHEW PO SCH (09:00)
[2021-07-29 11:21] VITALS: PULSE 76; TEMP 97.5
[2021-07-29 13:03] VITALS: BP 140/90
== END 2021-07-29 13:22 | disposition home or self-care (01) ==
LOC: EMEROOARM 07:46 → 3BNU 07:46 → SUATTDRO 10:07 → 3BNU 10:50
PROVIDERS: ADMIT Internal Medicine; ATTEND Internal Medicine